=== PATIENT | male | born 1975 | race Caucasian/White ===

== ENCOUNTER 2017-01-28 09:29 | Emergency (ER) | payer OTHER ==
[~2017-01-28] VITALS: Ht 172.7 cm; Wt 62.0 kg
[2017-01-28 09:32] VITALS: TEMP 36.4; Ht 172.7 cm; Wt 62.0 kg
[2017-01-28 10:40] VITALS: BP 124/82; PULSE 68; O2SAT 98
--- NOTE | 2017-01-28 15:34 | EMERGENCY ROOM VISIT NOTE ---
ED Visit Note First contact with patient: 09:43 Chief Complaint: Blood exposure. History of Present Illness: Mr. Ventura is a 41-year-old white male who ambulates into the ED complaining of blood exposure from a possible scalpel. Patient reports he was assisting an attending physician today with the placement of a chest tube. He reports the surgeon turned towards him and accidentally struck his anterior right forearm with a scalpel that was exposed to the patient's blood. He reports immediately clean the wound with soap and water. Currently patient denies any associated symptoms. Including pain in the area of the scalpel wound. Review of Systems: As noted above in history of present illness. Past Medical History: GERD. Current Medications: None reported. Allergies to Medications: Contrast media. Social History: Patient is currently employed; he feels safe in his home environment; he denies tobacco use. Physical Examination: Vital Signs: Date Time Temp Pulse Resp B/P (MAP) Pulse Ox O2 Delivery O2 Flow Rate FiO2 01/28/17 10:40 68 18 124/82 98 01/28/17 09:32 36.4 63 18 127/88 97 Room Air GENERAL: 41-year-old male in no acute distress, nontoxic-appearing, afebrile and hemodynamically stable. NEUROLOGICAL: Awake, alert and oriented to person, place and time. Answering questions appropriately and following commands. Normal gait. Good hand eye coordination. No focal motor or sensory deficits. SKIN: Warm, dry and pink. Right Forearm: Over the proximal aspect of the anterior forearm patient has a subcentimeter superficial laceration. No active bleeding. RIGHT UPPER EXTREMITY: Soft tissue injury as noted above. Full range of motion in flexion and extension of the elbow and pronation and supination of the forearm. Throughout the distal arm and hand the skin was warm and pink and capillary refill is brisk. ED Course: Patient is assessed as noted above. Patient was educated on the risks and benefits of HIV and hepatitis testing. Hepatitis B, hepatitis C and HIV testing are performed and are currently pending. Patient was educated about today's findings and instructed on his treatment plan ; he verbalizes understanding and agreement with this plan. Clinical Impression: Blood exposure Disposition: Patient discharged home in stable condition; prior to departure he was reassessed and subjectively reported that he was pain and symptom-free. Plan: Patient was encouraged to follow-up with [facility] for testing results and additional treatment/testing. Wound care and signs of infection were discussed with the patient. Patient was encouraged return the ED for any signs of infection or any new/ concerning symptoms.
== END 2017-01-28 10:42 | disposition home or self-care (01) ==
LOC: C.EDB 09:30
DX: S51.811A Laceration without foreign body of right forearm, initial encounter (principal); W45.8XXA Other foreign body or object entering through skin, initial encounter; K21.9 Gastro-esophageal reflux disease without esophagitis; Y99.0 Civilian activity done for income or pay

== ENCOUNTER → 2017-02-18 | Outpatient (CLI) | payer OTHER ==
--- NOTE | 2017-02-18 11:13 | DIAGNOSTIC IMAGING REPORT ---
C-SPINE ROUTINE 4 OR 5 VIEWS HISTORY: 41 years-old Male chronic neck pain without reported trauma COMPARISON: Thoracic spine radiographs 07/25/2011 TECHNIQUE: 5 radiograph views of the cervical spine FINDINGS: There are 7 nonrib-bearing cervical type vertebral segments present. There is mild intervertebral disc space narrowing at C3-C4 and C4-C5. Multilevel uncovertebral spurring is seen with minimal facet arthropathy. 2 mm ossification is seen within the nuchal ligament at the level of C6-C7. There is mild bony neuroforaminal stenosis on the left at C4-C5. There is no acute fracture or dislocation. The odontoid process is subvisualized secondary to positioning. The odontoid process and lateral pillars of C1 appear intact is seen. No prevertebral soft tissue swelling. Lung apices are clear. IMPRESSION: 1. No acute cervical spine fracture or dislocation. 2. Mild degenerative changes at C3-C4 and C4-C5 as above. The above report was generated using voice recognition software. It may contain grammatical, syntax or spelling errors. Electronically signed by: Eitan Anthony M.D. 02/18/2017 11:12 AM Dictated Date/Time: 02/18/2017 11:09 AM
[2017-02-18 12:44] LABS: RHEUMATOID FACTOR < 10.0 U/mL (0-15)
[2017-02-18 15:14] LABS: LYME DISEASE AB IGG NEG (NEG)
[2017-02-18 15:23] LABS: LYME DISEASE AB IGM NEG (NEG)
[2017-02-19 14:27] LABS: C-REACTIVE PROT HIGHSEN 0.2 MG/L
== END | disposition home or self-care (01) ==
LOC: C.LAB 10:32
PROVIDERS: ATTEND Family Medicine
DX: M25.50 Pain in unspecified joint (principal)